=== PATIENT | male | born 1960 | race Caucasian/White ===

== ENCOUNTER 2019-02-10 10:48 | Inpatient (IN) ==
[2019-02-10] MEDS ORDERED: ONDANSETRON 4 MG/2 ML VIAL IV PRN (11:04)
[2019-02-10] MEDS ORDERED: NITROGLYCERIN 2% OINT 1 INCH/GM PACK TOP STA (11:04)
[2019-02-10] MEDS ORDERED: ASPIRIN 325 MG TABLET PO STA (11:04)
[2019-02-10 11:19] LABS: Basophils # 0.1 10*3/uL (0.0-0.2); Basophils % 0.7 % (0.0-0.8); Eosinophils # 0.4 10*3/uL (0.0-0.87); Hemoglobin 12.3 GM/DL (14.0-18.0); Immature Granulocytes % 0.2 %; Immature Granulocytes Absolute 0.02 #; Lymphocytes # 2.8 10*3/uL (1.4-4.0); Lymphocytes % 32.9 % (21.2-54.2); Mean Corpuscular HGB Conc 31.5 GM/DL (32-36); Mean Corpuscular Volume 86.9 FL (87-102); Mean Platelet Volume 10.4 FL (9.6-12.0); Monocytes % 8.7 % (1.7-12.7); Neutrophils % 52.5 % (38.7-73.9); Platelet Count 232 T/CUMM (130-400); Red Blood Count 4.49 MC/CUMM (3.8-5.5); Red Cell Distribution Width 13.5 % (9.3-17.3); White Blood Count 8.4 T/CUMM (4-12)
[2019-02-10] MEDS: MORPHINE 4 MG/1 ML VIAL IV PRN ×3 (11:22→22:26)
[2019-02-10 11:29] LABS: INR 0.9; Partial Thromboplastin Time 24.9 SECS (0-40)
[2019-02-10] MEDS ORDERED: ENOXAPARIN 120 MG/0.8 ML SYRINGE SUBCUT STA (11:33)
[2019-02-10 11:41] LABS: Albumin 3.4 G/DL (3.4-5.0); Bilirubin,Total 0.4 MG/DL (0.2-1.0); Calcium 8.6 MG/DL (8.5-10.1); Osmolality,Calculated 286.1 MOS/KG (273-304); Total Protein 6.9 G/DL (6.4-8.3)
[2019-02-10] MEDS ORDERED: GLUCAGON 1 MG VIAL IM PRN ×2 (13:40)
[2019-02-10] MEDS ORDERED: DEXTROSE 50% 25 GM/50 ML VIAL IV PRN (13:40)
[2019-02-10] MEDS ORDERED: DEXTROSE 10% 25 GM/250 ML BAG IV PRN (13:40)
[2019-02-10] MEDS ORDERED: SODIUM CHLORIDE 0.9% 1,000 ML IV SCH ×2 (14:00→15:19)
[2019-02-10] MEDS ORDERED: NITROGLYCERIN SL 0.4 MG TABLET SL PRN (15:19)
[2019-02-10] MEDS ORDERED: MAGNESIUM SULF RIDER 4 GM in PREMIX 1 EACH IV PRN (15:19)
[2019-02-10] MEDS ORDERED: MAGNESIUM SULF RIDER 2 GM in PREMIX 1 EACH IV PRN (15:19)
[2019-02-10 16:58] LABS: ABG Base Excess 1.1 MMOL/L (-2.5-2.5); ABG HCO3 25.2 MMOL/L (20-26); ABG PCO2 43.1 MM HG (35-48); ABG PH 7.394 (7.35-7.45); ABG PO2 74.9 MM HG (80-95); ABG TCO2 22.4 MMOL/L (23-27)
[2019-02-10] MEDS: ATORVASTATIN 40 MG TABLET PO SCH (21:20)
[2019-02-10] MEDS: CHLORHEXIDINE 0.12% ORAL RINSE 60 ML BOTTLE SWISH/SPIT SCH (21:20)
[2019-02-11] MEDS: ISOSORBIDE MONONITRATE 30 MG TABLET PO SCH (09:08)
[2019-02-11] MEDS: ASPIRIN EC 81 MG TABLET PO SCH (09:08)
[2019-02-11] MEDS: LOSARTAN 50 MG TABLET PO SCH (09:09)
[2019-02-11] MEDS: GLIMEPIRIDE 4 MG TABLET PO SCH (09:09)
[2019-02-11] MEDS: CHLORHEXIDINE 0.12% ORAL RINSE 60 ML BOTTLE SWISH/SPIT SCH ×2 (09:09→21:19)
[2019-02-11] MEDS ORDERED: CEFUROXIME INJ 1,500 MG in SYRINGE 1 EACH IV ONE (13:40)
[2019-02-11] MEDS: CHLORHEXIDINE 4% SOLN 118 ML BOTTLE TOP SCH ×2 (15:00→21:22)
[2019-02-11] MEDS: CLORAZEPATE 3.75 MG TABLET PO PRN ×2 (16:26→21:18)
[2019-02-11] MEDS ORDERED: FAMOTIDINE 20 MG TABLET PO ONE (17:12)
[2019-02-11] MEDS: ATORVASTATIN 40 MG TABLET PO SCH (21:19)
[2019-02-12] MEDS: CLORAZEPATE 3.75 MG TABLET PO PRN (03:16)
[2019-02-12] MEDS: CHLORHEXIDINE 4% SOLN 118 ML BOTTLE TOP SCH ×2 (04:12→09:00)
[2019-02-12] MEDS ORDERED: PAPAVERINE 60 MG/2 ML VIAL ONE (04:21)
[2019-02-12] MEDS ORDERED: VANCOMYCIN 1,000 MG VIAL ONE (04:21)
[2019-02-12] MEDS: LOSARTAN 50 MG TABLET PO SCH ×2 (06:00→09:00)
[2019-02-12] MEDS: ISOSORBIDE MONONITRATE 30 MG TABLET PO SCH ×2 (06:00→09:00)
[2019-02-12] MEDS ORDERED: DIAZEPAM 5 MG TABLET PO ONE (06:00)
[2019-02-12] MEDS ORDERED: CEFUROXIME INJ 1,500 MG in SYRINGE 1 EACH IV ONE (06:30)
[2019-02-12] MEDS: GLIMEPIRIDE 4 MG TABLET PO SCH (07:30)
[2019-02-12 07:44] LABS: ABG Base Excess 1.5 MMOL/L (-2.5-2.5); ABG HCO3 25.7 MMOL/L (20-26); ABG Oxygen Saturation 96.5 % (95-100); ABG PCO2 39.8 MM HG (35-48); ABG PH 7.423 (7.35-7.45); ABG PO2 87.4 MM HG (80-95); ABG TCO2 22.8 MMOL/L (23-27); Glucose Heart Surgery 183 MG/DL (74-106); Hematocrit Heart Surgery 38.2 PERCENT (42-52); Hemoglobin Heart Surgery 12.4 G/DL (14.0-18.0); PCO2 Patient Temp Arterial 39.8 MMHG; PH Patient Temp Arterial 7.423; PO2 Patient Temp Arterial 87.4 MM HG; Patient Temperature 37 CELCIUS; Potassium Heart/CVR 3.9 MMOL/L (3.5-5.1); Sodium Heart/CVR 139 MMOL/L (135-145)
[2019-02-12 07:58] LABS: Apearance,Urine CLEAR (Clear); Bilirubin,Urine Negative (Negative); Blood, Urine Negative (Negative); Glucose,Urine (UA) Negative (Negative); Ketones,Urine Negative (Negative); Mucus,Urine Occasional /LPF (Occasional); Nitrite,Urine Negative (Negative); Protein,Urine Negative; RBC,Urine 1 /HPF (0-4); Urine Color Yellow (Yellow); Urine Specific Gravity 1.013 (1.001-1.035); Urine Urobilinogen < 2.0 EU/DL (0.2-1.0); WBC,Urine <1 /HPF (0-6)
[2019-02-12] MEDS: ASPIRIN EC 81 MG TABLET PO SCH (09:00)
[2019-02-12] MEDS: CHLORHEXIDINE 0.12% ORAL RINSE 60 ML BOTTLE SWISH/SPIT SCH (09:00)
[2019-02-12 09:02] LABS: Hemoglobin Heart Surgery 9.7 G/DL (14.0-18.0); PCO2 Patient Temp Venous 38.8 MM HG; PH Patient Temp Venous 7.463; PO2 Patient Temp Venous 41.7 MM HG; Potassium Heart/CVR 4.4 MMOL/L (3.5-5.1); VBG Base Excess 3.1 MEQ/L (0-4); VBG HCO3 27.7 MEQ/L (24-28); VBG Oxygen Saturation 75.9 %; VBG PCO2 42.4 MMHG (41-51); VBG PH 7.433
[2019-02-12 09:36] LABS: Hemoglobin Heart Surgery 10.4 G/DL (14.0-18.0); PCO2 Patient Temp Venous 35.1 MM HG; PH Patient Temp Venous 7.481; PO2 Patient Temp Venous 40.3 MM HG; Potassium Heart/CVR 4.1 MMOL/L (3.5-5.1); VBG HCO3 26.3 MEQ/L (24-28); VBG Oxygen Saturation 77.7 %; VBG PH 7.436; VBG PO2 49.7 MMHG (17-40)
[2019-02-12 10:02] LABS: Hematocrit Heart Surgery 31.6 PERCENT (42-52); Hemoglobin Heart Surgery 10.2 G/DL (14.0-18.0); PCO2 Patient Temp Venous 36.2 MM HG; PH Patient Temp Venous 7.45; PO2 Patient Temp Venous 32.8 MM HG; Potassium Heart/CVR 4.5 MMOL/L (3.5-5.1); VBG Base Excess 1.4 MEQ/L (0-4); VBG HCO3 25.2 MEQ/L (24-28); VBG Oxygen Saturation 72.1 %; VBG PCO2 39.9 MMHG (41-51); VBG PH 7.42; VBG PO2 37.7 MMHG (17-40)
[2019-02-12] MEDS ORDERED: PHENYLEPHRINE DRIP 40 MG/250 ML PREMIX IV ONE (10:08)
[2019-02-12] MEDS ORDERED: POTASSIUM CHLORIDE RIDER 100 ML IV ONE ×2 (10:08→10:38)
[2019-02-12] MEDS ORDERED: NITROPRUSSIDE 50 MG/2 ML VIAL ONE (10:08)
[2019-02-12] MEDS ORDERED: MANNITOL 100 GM/500 ML BAG IV ONE (10:37)
[2019-02-12] MEDS ORDERED: MAGNESIUM SULFATE 5 GM/10 ML VIAL IV ONE (10:38)
[2019-02-12] MEDS ORDERED: SODIUM BICARBONATE 50 MEQ/50 ML VIAL IV ONE (10:38)
[2019-02-12] MEDS ORDERED: methylPREDNISolone SOD SUC 1,000 MG/8 ML VIAL ONE (10:38)
[2019-02-12] MEDS ORDERED: PROTAMINE SULFATE 250 MG/25 ML VIAL IV ONE (10:38)
[2019-02-12] MEDS ORDERED: DEXTROSE 5% KCL 20 MEQ 20 MEQ/1,000 ML BAG IV ONE (10:38)
[2019-02-12] MEDS ORDERED: HEPARIN 10,000 UNIT/10 ML VIAL ONE (10:38)
[2019-02-12] MEDS ORDERED: ALBUMIN 25% 25 GM/100 ML VIAL IV ONE (10:38)
[2019-02-12] MEDS ORDERED: PROTAMINE SULFATE 50 MG/5 ML VIAL IV ONE ×2 (10:39→11:42)
[2019-02-12] MEDS ORDERED: FUROSEMIDE 20 MG/2 ML VIAL ONE (10:39)
[2019-02-12] MEDS ORDERED: POTASSIUM CHLORIDE 20 MEQ/10 ML VIAL ONE (10:39)
[2019-02-12 10:46] LABS: ABG HCO3 26.2 MMOL/L (20-26); ABG Oxygen Saturation 98.6 % (95-100); ABG PCO2 33.2 MM HG (35-48); ABG PH 7.486 (7.35-7.45); ABG TCO2 22.6 MMOL/L (23-27); Glucose Heart Surgery 287 MG/DL (74-106); Hematocrit Heart Surgery 31.5 PERCENT (42-52); Hemoglobin Heart Surgery 10.2 G/DL (14.0-18.0); Ionized Calcium Arterial 1.07 MMOL/L (1.21-1.46); PCO2 Patient Temp Arterial 33.2 MMHG; PH Patient Temp Arterial 7.486; Patient Temperature 37 CELCIUS; Potassium Heart/CVR 4.3 MMOL/L (3.5-5.1); Sodium Heart/CVR 136 MMOL/L (135-145)
[2019-02-12] MEDS ORDERED: INSULIN REGULAR 100 UNIT/ML IV PRN (11:33)
[2019-02-12] MEDS ORDERED: INSULIN REGULAR 100 UNIT/ML IV ONE (11:33)
[2019-02-12] MEDS ORDERED: POTASSIUM CHLORIDE RIDER 10 MEQ in PREMIX 1 EACH IV PRN (11:33)
[2019-02-12] MEDS ORDERED: MAGNESIUM SULF RIDER 4 GM in PREMIX 1 EACH IV PRN (11:33)
[2019-02-12] MEDS ORDERED: INSULIN REGULAR DRIP 100 ML IV SCH (11:33)
[2019-02-12] MEDS ORDERED: MIDAZOLAM 10 MG/2 ML VIAL IV PRN (11:33)
[2019-02-12] MEDS ORDERED: VECURONIUM 10 MG VIAL IV PRN ×2 (11:33)
[2019-02-12] MEDS ORDERED: MAGNESIUM SULF RIDER 2 GM in PREMIX 1 EACH IV PRN (11:33)
[2019-02-12] MEDS ORDERED: MIDAZOLAM 2 MG/2 ML VIAL IV PRN (11:33)
[2019-02-12] MEDS ORDERED: DEXTROSE 50% 25 GM/50 ML VIAL IV PRN ×2 (11:33)
[2019-02-12] MEDS ORDERED: PHENYLEPHRINE DRIP 40 MG/250 ML PREMIX IV PRN (11:33)
[2019-02-12] MEDS ORDERED: ACETAMINOPHEN 650 MG SUPP RECTAL PRN (11:33)
[2019-02-12] MEDS ORDERED: SODIUM CHLORIDE 0.45% 1,000 ML IV SCH ×2 (11:33)
[2019-02-12] MEDS ORDERED: CALCIUM CHLORIDE 1,000 MG/10 ML SYRINGE IV PRN (11:33)
[2019-02-12] MEDS ORDERED: ONDANSETRON 4 MG/2 ML VIAL IV PRN (11:33)
[2019-02-12] MEDS ORDERED: NITROPRUSSIDE 100 MG in DEXTROSE 5% 250 ML IV PRN (11:33)
[2019-02-12 11:43] LABS: ABG HCO3 26.2 MMOL/L (20-26); ABG Oxygen Saturation 95.7 % (95-100); ABG PCO2 37.6 MM HG (35-48); ABG PH 7.447 (7.35-7.45); ABG PO2 76.9 MM HG (80-95); ABG TCO2 23.4 MMOL/L (23-27); Glucose Heart Surgery 264 MG/DL (74-106); Hematocrit Heart Surgery 32.7 PERCENT (42-52); Hemoglobin Heart Surgery 10.6 G/DL (14.0-18.0); Potassium Heart/CVR 3.8 MMOL/L (3.5-5.1)
[2019-02-12 11:48] LABS: Basophils % 0.1 % (0.0-0.8); Eosinophils # 0.2 10*3/uL (0.0-0.87); Eosinophils % 1.7 % (0.00-10.9); Hematocrit 31.3 VOL% (42.0-52.0); Immature Granulocytes % 0.5 %; Immature Granulocytes Absolute 0.05 #; Lymphocytes # 0.9 10*3/uL (1.4-4.0); Lymphocytes % 9.3 % (21.2-54.2); Mean Corpuscular HGB Conc 31.9 GM/DL (32-36); Mean Corpuscular Volume 86.7 FL (87-102); Mean Platelet Volume 10.7 FL (9.6-12.0); Monocytes % 6.2 % (1.7-12.7); Neutrophils % 82.2 % (38.7-73.9); Platelet Count 217 T/CUMM (130-400); Red Blood Count 3.61 MC/CUMM (3.8-5.5); Red Cell Distribution Width 13.3 % (9.3-17.3); White Blood Count 10.2 T/CUMM (4-12)
[2019-02-12 11:57] LABS: INR 1.1; PT Patient Result 11.6 SECS
[2019-02-12] MEDS: KETOROLAC 30 MG/1 ML VIAL IV SCH ×3 (12:10→23:04)
[2019-02-12] MEDS: POTASSIUM CHLORIDE RIDER 20 MEQ in PREMIX 1 EACH IV PRN ×6 (12:10→18:37)
[2019-02-12 12:31] LABS: Bilirubin,Total 0.6 MG/DL (0.2-1.0); Calcium 8.2 MG/DL (8.5-10.1); Osmolality,Calculated 299.4 MOS/KG (273-304); Total Protein 5.5 G/DL (6.4-8.3)
[2019-02-12 12:35] LABS: CKMB % 6.8 %
[2019-02-12 12:38] LABS: Troponin I 1.69 NG/ML (0.00-0.045)
[2019-02-12] MEDS: MORPHINE 4 MG/1 ML VIAL IV PRN ×3 (13:05→20:02)
[2019-02-12] MEDS: ALBUMIN 5% 12.5 GM in PREMIX 1 EACH IV PRN ×3 (13:20→14:20)
[2019-02-12] MEDS: LACTATED RINGERS 250 ML IV PRN ×6 (13:45→17:30)
[2019-02-12 13:54] LABS: ABG Base Excess 0.8 MMOL/L (-2.5-2.5); ABG HCO3 25.1 MMOL/L (20-26); ABG Oxygen Saturation 96.6 % (95-100); ABG PCO2 39.9 MM HG (35-48); ABG PH 7.411 (7.35-7.45); ABG PO2 87.6 MM HG (80-95); Glucose Heart Surgery 185 MG/DL (74-106); Hematocrit Heart Surgery 31.9 PERCENT (42-52); Hemoglobin Heart Surgery 10.3 G/DL (14.0-18.0); Potassium Heart/CVR 3.6 MMOL/L (3.5-5.1)
[2019-02-12 16:01] LABS: ABG Base Excess 0.6 MMOL/L (-2.5-2.5); ABG Oxygen Saturation 96.1 % (95-100); ABG PCO2 40.8 MM HG (35-48); ABG PH 7.402 (7.35-7.45); ABG PO2 83.5 MM HG (80-95); ABG TCO2 23.3 MMOL/L (23-27); Glucose Heart Surgery 135 MG/DL (74-106); Hematocrit Heart Surgery 29.2 PERCENT (42-52); Hemoglobin Heart Surgery 9.4 G/DL (14.0-18.0); Potassium Heart/CVR 3.9 MMOL/L (3.5-5.1)
[2019-02-12 17:58] LABS: ABG Base Excess -1.2 MMOL/L (-2.5-2.5); ABG HCO3 23.4 MMOL/L (20-26); ABG Oxygen Saturation 96.2 % (95-100); ABG PCO2 39.3 MM HG (35-48); ABG PH 7.387 (7.35-7.45); ABG PO2 84.8 MM HG (80-95); ABG TCO2 21.5 MMOL/L (23-27); Glucose Heart Surgery 124 MG/DL (74-106); Hematocrit Heart Surgery 31.3 PERCENT (42-52); Hemoglobin Heart Surgery 10.1 G/DL (14.0-18.0); Potassium Heart/CVR 3.9 MMOL/L (3.5-5.1)
[2019-02-12] MEDS ORDERED: FUROSEMIDE 40 MG/4 ML VIAL IV PRN (18:07)
[2019-02-12 19:37] LABS: ABG Base Excess -0.5 MMOL/L (-2.5-2.5); ABG HCO3 24.3 MMOL/L (20-26); ABG Oxygen Saturation 93.7 % (95-100); ABG PCO2 40.7 MM HG (35-48); ABG PH 7.394 (7.35-7.45); ABG PO2 83.9 MM HG (80-95); ABG TCO2 25.6 MMOL/L (23-27); Glucose Heart Surgery 111 MG/DL (74-106); Hemoglobin Heart Surgery 10.3 G/DL (14.0-18.0); Potassium Heart/CVR 4.4 MMOL/L (3.5-5.1)
[2019-02-12] MEDS: CEFUROXIME INJ 1,500 MG in SYRINGE 1 EACH IV SCH (19:49)
[2019-02-12 20:00] LABS: CKMB % 4.4 %
[2019-02-12 20:02] LABS: Troponin I 2.39 NG/ML (0.00-0.045)
[2019-02-12] MEDS ORDERED: CHLORHEXIDINE 0.12% ORAL RINSE 60 ML BOTTLE SWISH/SPIT SCH (21:00)
[2019-02-12] MEDS: MORPHINE 10 MG/1 ML VIAL IV PRN (22:20)
[2019-02-13] MEDS: MORPHINE 10 MG/1 ML VIAL IV PRN ×2 (00:27→03:55)
[2019-02-13 04:38] LABS: Basophils % 0.1 % (0.0-0.8); Hematocrit 30.2 VOL% (42.0-52.0); Hemoglobin 9.8 GM/DL (14.0-18.0); Immature Granulocytes % 0.4 %; Immature Granulocytes Absolute 0.06 #; Lymphocytes # 0.7 10*3/uL (1.4-4.0); Lymphocytes % 4.7 % (21.2-54.2); Mean Corpuscular HGB Conc 32.5 GM/DL (32-36); Mean Corpuscular Volume 86.5 FL (87-102); Mean Platelet Volume 10.6 FL (9.6-12.0); Neutrophils % 88.8 % (38.7-73.9); Platelet Count 203 T/CUMM (130-400); Red Blood Count 3.49 MC/CUMM (3.8-5.5); White Blood Count 15.2 T/CUMM (4-12)
[2019-02-13 04:39] LABS: ABG Base Excess 2.1 MMOL/L (-2.5-2.5); ABG HCO3 26.2 MMOL/L (20-26); ABG Oxygen Saturation 92.7 % (95-100); ABG PCO2 43.5 MM HG (35-48); ABG PH 7.403 (7.35-7.45); ABG PO2 66.1 MM HG (80-95); ABG TCO2 24.6 MMOL/L (23-27); Glucose Heart Surgery 166 MG/DL (74-106); Hematocrit Heart Surgery 31.6 PERCENT (42-52); Hemoglobin Heart Surgery 10.2 G/DL (14.0-18.0); Potassium Heart/CVR 4.1 MMOL/L (3.5-5.1)
[2019-02-13 04:59] LABS: Albumin 3.6 G/DL (3.4-5.0); Bilirubin,Direct 0.12 MG/DL (0.0-0.20); Bilirubin,Total 0.7 MG/DL (0.2-1.0); CKMB % 3.8 %; Calcium 8.6 MG/DL (8.5-10.1); Osmolality,Calculated 290.8 MOS/KG (273-304); Total Protein 6.7 G/DL (6.4-8.3)
[2019-02-13] MEDS: POTASSIUM CHLORIDE RIDER 20 MEQ in PREMIX 1 EACH IV PRN (05:03)
[2019-02-13] MEDS: KETOROLAC 30 MG/1 ML VIAL IV SCH ×4 (05:03→20:34)
[2019-02-13 05:10] LABS: Troponin I 1.9 NG/ML (0.00-0.045)
[2019-02-13 05:24] LABS: Atypical Lymphocytes Few; Band Neutrophils 1 % (0-10); Hypochromasia 1+; Lymphocytes 4 % (20-55); Microcytosis Slight; Segmented Neutrophils 90 % (50-85); Total Cells Counted 100
[2019-02-13] MEDS: CEFUROXIME INJ 1,500 MG in SYRINGE 1 EACH IV SCH (06:45)
[2019-02-13 07:44] LABS: ABG Base Excess 1.1 MMOL/L (-2.5-2.5); ABG HCO3 25.3 MMOL/L (20-26); ABG Oxygen Saturation 94.1 % (95-100); ABG PCO2 42.7 MM HG (35-48); ABG PH 7.394 (7.35-7.45); ABG PO2 72.9 MM HG (80-95); ABG TCO2 23.6 MMOL/L (23-27); Glucose Heart Surgery 135 MG/DL (74-106); Hematocrit Heart Surgery 32.4 PERCENT (42-52); Hemoglobin Heart Surgery 10.5 G/DL (14.0-18.0); Potassium Heart/CVR 4.4 MMOL/L (3.5-5.1)
[2019-02-13] MEDS ORDERED: INSULIN REGULAR 100 UNIT/ML SUBCUT SCH (08:00)
[2019-02-13] MEDS ORDERED: MAGNESIUM SULF RIDER 2 GM in PREMIX 1 EACH IV PRN (08:57)
[2019-02-13] MEDS ORDERED: MAGNESIUM SULF RIDER 4 GM in PREMIX 1 EACH IV PRN (08:57)
[2019-02-13] MEDS ORDERED: ALUMINUM/MAGNES/SIMETH MAX STR 30 ML UDCUP PO PRN (08:57)
[2019-02-13] MEDS ORDERED: GLUCAGON 1 MG VIAL IM PRN ×2 (08:57)
[2019-02-13] MEDS ORDERED: ZALEPLON 5 MG CAPSULE PO PRN (08:57)
[2019-02-13] MEDS ORDERED: MORPHINE 4 MG/1 ML VIAL IV PRN (08:57)
[2019-02-13] MEDS ORDERED: DEXTROSE 50% 25 GM/50 ML VIAL IV PRN ×2 (08:57)
[2019-02-13] MEDS ORDERED: ONDANSETRON 4 MG/2 ML VIAL IV PRN (08:57)
[2019-02-13] MEDS ORDERED: MAGNESIUM HYDROXIDE SUSP 30 ML UDCUP PO PRN (08:57)
[2019-02-13] MEDS ORDERED: ACETAMINOPHEN 325 MG TABLET PO PRN (08:57)
[2019-02-13] MEDS ORDERED: POTASSIUM CHLORIDE 20 MEQ TABLET PO PRN (08:57)
[2019-02-13] MEDS ORDERED: LOSARTAN 50 MG TABLET PO SCH (09:00)
[2019-02-13] MEDS: SODIUM CHLOR 0.45% KCL 20 MEQ 20 MEQ/1,000 ML BAG IV SCH (10:00)
[2019-02-13] MEDS: ISOSORBIDE MONONITRATE 30 MG TABLET PO SCH (10:05)
[2019-02-13] MEDS: FERROUS SULFATE 325 MG TABLET PO SCH (10:05)
[2019-02-13] MEDS: PANTOPRAZOLE 40 MG TABLET PO SCH (10:05)
[2019-02-13] MEDS: DOCUSATE SODIUM 100 MG CAPSULE PO SCH (10:05)
[2019-02-13] MEDS: metFORMIN 500 MG TABLET PO SCH ×2 (10:05→20:34)
[2019-02-13] MEDS: ASPIRIN EC 81 MG TABLET PO SCH (10:05)
[2019-02-13] MEDS: CHLORHEXIDINE 0.12% ORAL RINSE 60 ML BOTTLE SWISH/SPIT SCH ×2 (10:05→20:38)
[2019-02-13] MEDS: INSULIN REGULAR 100 UNIT/ML SUBCUT SCH ×2 (17:35→20:34)
[2019-02-13] MEDS: ATORVASTATIN 40 MG TABLET PO SCH (20:34)
[2019-02-14] MEDS: INSULIN REGULAR 100 UNIT/ML SUBCUT SCH ×6 (00:14→21:44)
[2019-02-14] MEDS: KETOROLAC 30 MG/1 ML VIAL IV SCH ×4 (03:12→21:42)
[2019-02-14 04:39] LABS: Basophils % 0.1 % (0.0-0.8); Eosinophils % 0.2 % (0.00-10.9); Hematocrit 30.3 VOL% (42.0-52.0); Hemoglobin 9.6 GM/DL (14.0-18.0); Immature Granulocytes % 0.4 %; Immature Granulocytes Absolute 0.05 #; Lymphocytes # 1.9 10*3/uL (1.4-4.0); Mean Corpuscular HGB Conc 31.7 GM/DL (32-36); Mean Corpuscular Volume 89.6 FL (87-102); Mean Platelet Volume 11.8 FL (9.6-12.0); Neutrophils % 74.3 % (38.7-73.9); Platelet Count 184 T/CUMM (130-400); Red Blood Count 3.38 MC/CUMM (3.8-5.5); Red Cell Distribution Width 14.2 % (9.3-17.3); White Blood Count 13.7 T/CUMM (4-12)
[2019-02-14 05:08] LABS: Alanine Aminotransferase 23 U/L (16-61); Albumin 3.1 G/DL (3.4-5.0); Alkaline Phosphatase 58 U/L (45-117); Aspartate Amino Transferase 24 U/L (0-37); Bilirubin,Indirect 0.5 MG/DL (0.0-1.0); Blood Urea Nitrogen 27 MG/DL (7-18); Calcium 8.5 MG/DL (8.5-10.1); Glucose 104 MG/DL (74-106); Osmolality,Calculated 290.8 MOS/KG (273-304); Total Protein 6.4 G/DL (6.4-8.3)
[2019-02-14] MEDS ORDERED: FUROSEMIDE 40 MG/4 ML VIAL IV ONE (06:00)
[2019-02-14] MEDS: FERROUS SULFATE 325 MG TABLET PO SCH (09:09)
[2019-02-14] MEDS: metFORMIN 500 MG TABLET PO SCH ×2 (09:09→21:42)
[2019-02-14] MEDS: PANTOPRAZOLE 40 MG TABLET PO SCH (09:11)
[2019-02-14] MEDS: ASPIRIN EC 81 MG TABLET PO SCH (09:12)
[2019-02-14] MEDS: ISOSORBIDE MONONITRATE 30 MG TABLET PO SCH (09:12)
[2019-02-14] MEDS: GLIMEPIRIDE 4 MG TABLET PO SCH (09:13)
[2019-02-14] MEDS: DOCUSATE SODIUM 100 MG CAPSULE PO SCH (09:13)
[2019-02-14] MEDS: CHLORHEXIDINE 0.12% ORAL RINSE 60 ML BOTTLE SWISH/SPIT SCH ×2 (09:14→21:43)
[2019-02-14] MEDS: SODIUM CHLOR 0.45% KCL 20 MEQ 20 MEQ/1,000 ML BAG IV SCH (12:37)
[2019-02-14] MEDS: ATORVASTATIN 40 MG TABLET PO SCH (21:42)
[2019-02-15] MEDS: KETOROLAC 30 MG/1 ML VIAL IV SCH ×4 (04:20→21:38)
[2019-02-15] MEDS: INSULIN REGULAR 100 UNIT/ML SUBCUT SCH ×5 (05:08→21:40)
[2019-02-15 05:14] LABS: Basophils # 0.1 10*3/uL (0.0-0.2); Basophils % 0.5 % (0.0-0.8); Eosinophils # 0.4 10*3/uL (0.0-0.87); Eosinophils % 3.8 % (0.00-10.9); Hematocrit 30.7 VOL% (42.0-52.0); Hemoglobin 9.4 GM/DL (14.0-18.0); Immature Granulocytes % 0.4 %; Immature Granulocytes Absolute 0.04 #; Lymphocytes # 3.1 10*3/uL (1.4-4.0); Lymphocytes % 27.5 % (21.2-54.2); Mean Corpuscular HGB Conc 30.6 GM/DL (32-36); Mean Corpuscular Volume 91.4 FL (87-102); Mean Platelet Volume 11.5 FL (9.6-12.0); Monocytes % 11.2 % (1.7-12.7); Neutrophils % 56.6 % (38.7-73.9); Platelet Count 186 T/CUMM (130-400); Red Blood Count 3.36 MC/CUMM (3.8-5.5); Red Cell Distribution Width 14.1 % (9.3-17.3); White Blood Count 11.1 T/CUMM (4-12)
[2019-02-15 05:29] LABS: Alanine Aminotransferase 24 U/L (16-61); Albumin 2.8 G/DL (3.4-5.0); Alkaline Phosphatase 55 U/L (45-117); Aspartate Amino Transferase 22 U/L (0-37); Bilirubin,Indirect 0.3 MG/DL (0.0-1.0); Blood Urea Nitrogen 29 MG/DL (7-18); Calcium 7.8 MG/DL (8.5-10.1); Glucose 121 MG/DL (74-106); Osmolality,Calculated 289.1 MOS/KG (273-304); Total Protein 6.2 G/DL (6.4-8.3)
[2019-02-15 05:31] LABS: Troponin I 0.704 NG/ML (0.00-0.045)
[2019-02-15 05:38] LABS: Hypochromasia 1+; Platelet Estimate Adequate
[2019-02-15 05:39] LABS: Microcytosis Slight
[2019-02-15] MEDS: ISOSORBIDE MONONITRATE 30 MG TABLET PO SCH (09:05)
[2019-02-15] MEDS: FERROUS SULFATE 325 MG TABLET PO SCH (09:05)
[2019-02-15] MEDS: DOCUSATE SODIUM 100 MG CAPSULE PO SCH (09:05)
[2019-02-15] MEDS: PANTOPRAZOLE 40 MG TABLET PO SCH (09:05)
[2019-02-15] MEDS: metFORMIN 500 MG TABLET PO SCH ×2 (09:05→21:39)
[2019-02-15] MEDS: ASPIRIN EC 81 MG TABLET PO SCH (09:05)
[2019-02-15] MEDS: GLIMEPIRIDE 4 MG TABLET PO SCH (09:05)
[2019-02-15] MEDS: CHLORHEXIDINE 0.12% ORAL RINSE 60 ML BOTTLE SWISH/SPIT SCH ×2 (09:15→21:40)
[2019-02-15] MEDS: ATORVASTATIN 40 MG TABLET PO SCH (21:39)
[2019-02-16] MEDS: INSULIN REGULAR 100 UNIT/ML SUBCUT SCH ×5 (02:34→21:33)
[2019-02-16] MEDS: KETOROLAC 30 MG/1 ML VIAL IV SCH (02:57)
[2019-02-16] MEDS: DOCUSATE SODIUM 100 MG CAPSULE PO SCH (09:08)
[2019-02-16] MEDS: metFORMIN 500 MG TABLET PO SCH ×2 (09:08→21:31)
[2019-02-16] MEDS: FERROUS SULFATE 325 MG TABLET PO SCH (09:09)
[2019-02-16] MEDS: PANTOPRAZOLE 40 MG TABLET PO SCH (09:09)
[2019-02-16] MEDS: ISOSORBIDE MONONITRATE 30 MG TABLET PO SCH (09:09)
[2019-02-16] MEDS: GLIMEPIRIDE 4 MG TABLET PO SCH (09:09)
[2019-02-16] MEDS: ASPIRIN EC 81 MG TABLET PO SCH (09:10)
[2019-02-16] MEDS: CHLORHEXIDINE 0.12% ORAL RINSE 60 ML BOTTLE SWISH/SPIT SCH ×2 (10:45→21:33)
[2019-02-16] MEDS: ATORVASTATIN 40 MG TABLET PO SCH (21:32)
[2019-02-17 05:30] LABS: Basophils # 0.1 10*3/uL (0.0-0.2); Basophils % 0.5 % (0.0-0.8); Eosinophils # 0.9 10*3/uL (0.0-0.87); Eosinophils % 8.5 % (0.00-10.9); Hematocrit 33.8 VOL% (42.0-52.0); Hemoglobin 10.5 GM/DL (14.0-18.0); Immature Granulocytes % 0.3 %; Immature Granulocytes Absolute 0.03 #; Lymphocytes # 2.5 10*3/uL (1.4-4.0); Lymphocytes % 24.8 % (21.2-54.2); Mean Corpuscular HGB Conc 31.1 GM/DL (32-36); Mean Corpuscular Volume 89.4 FL (87-102); Mean Platelet Volume 11.2 FL (9.6-12.0); Monocytes % 8.4 % (1.7-12.7); Neutrophils % 57.5 % (38.7-73.9); Platelet Count 248 T/CUMM (130-400); Red Blood Count 3.78 MC/CUMM (3.8-5.5); Red Cell Distribution Width 13.8 % (9.3-17.3)
[2019-02-17 06:07] LABS: Alanine Aminotransferase 19 U/L (16-61); Albumin 2.7 G/DL (3.4-5.0); Alkaline Phosphatase 58 U/L (45-117); Aspartate Amino Transferase 13 U/L (0-37); Bilirubin,Indirect 0.6 MG/DL (0.0-1.0); Blood Urea Nitrogen 20 MG/DL (7-18); Glucose 108 MG/DL (74-106); Osmolality,Calculated 291.7 MOS/KG (273-304); Total Protein 6.7 G/DL (6.4-8.3)
[2019-02-17 06:13] LABS: Troponin I 0.246 NG/ML (0.00-0.045)
[2019-02-17 07:52] VITALS: BP 127/70
[2019-02-17] MEDS: CHLORHEXIDINE 0.12% ORAL RINSE 60 ML BOTTLE SWISH/SPIT SCH (09:18)
[2019-02-17] MEDS: PANTOPRAZOLE 40 MG TABLET PO SCH (09:19)
[2019-02-17] MEDS: GLIMEPIRIDE 4 MG TABLET PO SCH (09:19)
[2019-02-17] MEDS: ISOSORBIDE MONONITRATE 30 MG TABLET PO SCH (09:19)
[2019-02-17] MEDS: FERROUS SULFATE 325 MG TABLET PO SCH (09:19)
[2019-02-17] MEDS: ASPIRIN EC 81 MG TABLET PO SCH (09:19)
[2019-02-17] MEDS: metFORMIN 500 MG TABLET PO SCH (09:19)
[2019-02-17] MEDS: DOCUSATE SODIUM 100 MG CAPSULE PO SCH (09:20)
[2019-02-17] MEDS: INSULIN REGULAR 100 UNIT/ML SUBCUT SCH (09:22)
== END 2019-02-17 11:38 | disposition home health service (06) | DRG 236 ==
LOC: N.ED 10:48 → N.EDINP 11:29 → N.TELES 14:57 → N.CVR 02-12 08:25 → N.TELES 02-13 11:06